=== PATIENT | female | born 2000 | race Caucasian/White ===

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

== ENCOUNTER 2020-08-23 20:50 | Emergency (ER) | payer MEDICAID, OTHER ==
--- NOTE | 2020-08-23 21:32 | CR ---
PROCEDURE INFORMATION: Exam: XR Right Ankle Exam date and time: 08/23/2020 9:05 PM Age: 20 years old Clinical indication: Injury or trauma; Other: Tripped over carpet and twisted ankle; Sprain or strain; Right; Injury date: 08/23/20; Additional info: Pain, TECHNIQUE: Imaging protocol: XR Right ankle. Views: 3 or more views. COMPARISON: No relevant prior studies available. FINDINGS: Bones/joints: There is no evidence of acute fracture. There is no evidence of joint malalignment or dislocation. Soft tissues: There are no soft tissue masses or fluid collections. IMPRESSION: 1. No evidence of acute fracture. 2. No evidence of acute dislocation.
[2020-08-23 22:00] VITALS: BP 132/82; PULSE 97
--- NOTE | 2020-08-23 22:16 | EDM.PDOC ---
ED HPI GENERAL MEDICAL PROBLEM - General Chief Complaint: Lower Extremity Injury/Pain Stated Complaint: INJURED RIGHT ANKLE Time Seen by Provider: 08/23/20 21:25 Source of Information: Reports: Patient History Limitations: Reports: No Limitations - History of Present Illness INITIAL COMMENTS - FREE TEXT/NARRATIVE: "turned ankle a work" Pain to rohgt outer ankle , stepped wrong going down ramp while at work. Right Ankle Pain Score (Numeric/FACES): 8 - Related Data Allergies Allergy/AdvReac Type Severity Reaction Status Date / Time coconut Allergy tongue Verified 08/23/20 21:55 swells trazodone Allergy Cannot Verified 08/23/20 21:55 Remember acetaminophen [From Midol] AdvReac Nausea Verified 08/23/20 21:55 pamabrom [From Midol] AdvReac Nausea Verified 08/23/20 21:55 "Drake" products Allergy Cannot Uncoded 07/26/19 23:11 Remember "Off" products Allergy Cannot Uncoded 07/26/19 23:11 Remember "Olay" products Allergy Cannot Uncoded 07/26/19 23:11 Remember Lysol Allergy Throat Uncoded 07/26/19 23:11 closes Home Meds: Home Meds Albuterol [Proventil Neb Soln] 1.25 mg NEB Q6H PRN 07/12/19 [History] FLUoxetine HCl [Fluoxetine HCl] 20 mg PO DAILY 07/12/19 [History] Multivitamin, Womens 1 tab PO DAILY 07/12/19 [History] hydrOXYzine pamoate [Hydroxyzine Pamoate] 50 mg PO TID PRN 07/12/19 [History] lamoTRIgine [Lamotrigine] 50 mg PO WITHBREAKFAST 07/12/19 [History] lamoTRIgine [Lamotrigine] 100 mg PO BEDTIME 08/23/20 [History] Past Medical History - Past Health History Medical/Surgical History: Denies Medical/Surgical History HEENT History: Reports: Impaired Vision Respiratory History: Reports: Asthma, Other (See Below) Other Respiratory History: "acute" asthma Gastrointestinal History: Reports: Chronic Constipation Genitourinary History: Reports: UTI, Recurrent 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 "knee messed up" Psychiatric History: Reports: ADHD, Anxiety, Depression, Mood Swings, PTSD, Other (See Below) Other Psychiatric History: "borderline personality disorder" Dermatologic History: Reports: Other (See Below) Other Dermatologic History: acne. multiple very superficial "cuts" to bilateral forearms - Past Surgical History HEENT Surgical History: Reports: Myringotomy w Tube(s) Social & Family History - Family History Family Medical History: No Pertinent Family History - Tobacco Use Tobacco Use Status *Q: Former Tobacco User Used Tobacco, but Quit: Yes Month/Year Tobacco Last Used: 2 yra ago Second Hand Smoke Exposure: No - Caffeine Use Caffeine Use: Reports: None Caffeine Use Comment: Pt reports drinking "a lot" and "more than I usually do" when asked about caffeine consumption tonight. - Recreational Drug Use Recreational Drug Use: No - Living Situation & Occupation Living situation: Reports: with Family Occupation: Student Review of Systems - Review of Systems Review Of Systems: Comprehensive ROS is negative, except as noted in HPI. ED EXAM, GENERAL - Physical Exam Exam: See Below Exam Limited By: No Limitations General Appearance: Alert, Mild Distress Ears: Normal External Exam, Hearing Grossly Normal Nose: Normal Inspection Throat/Mouth: Normal Inspection Head: Atraumatic, Normocephalic Neck: Normal Inspection Respiratory/Chest: No Respiratory Distress, Normal Breath Sounds Cardiovascular: Normal Peripheral Pulses, Regular Rate, Rhythm Extremities: Joint Swelling (mild lateral right ankle), Limited Range of Motion. No: Normal Range of Motion Neurological: Alert, Oriented Psychiatric: Normal Affect, Normal Mood Course - Vital Signs Last Recorded V/S: Last Vital Signs Temp 98.7 F 08/23/20 21:15 Pulse 97 08/23/20 21:15 Resp 18 08/23/20 21:15 BP 132/82 08/23/20 21:15 Pulse Ox 100 08/23/20 21:15 Departure - Departure Time of Disposition: 22:13 Disposition: Home, Self-Care 01 Condition: Good Clinical Impression: Right ankle sprain - Discharge Information *PRESCRIPTION DRUG MONITORING PROGRAM REVIEWED*: No *COPY OF PRESCRIPTION DRUG MONITORING REPORT IN PATIENT BENITO: No Instructions: Ankle Sprain, [id number] Referrals: Serena Gilman, ELECTRICAL PROJECT MANAGER [Primary Care Provider] - Forms: ED Department Discharge Additional Instructions: ibuprofen 600mg every 6 hours as needed for discomfort, take with food ice pack to ankle elevate silvano wrap crutches, weight bearing as tolerated clinic follow up on Friday to recheck Sepsis Event Note (ED) - Evaluation Sepsis Screening Result: No Definite Risk - Focused Exam Vital Signs: Vital Signs Temp Pulse Resp BP Pulse Ox 08/23/20 21:15 98.7 F 97 18 132/82 100
== END 2020-08-23 22:28 | disposition home or self-care (01) ==
LOC: DL.ED 20:50
DX: S93.401A Sprain of unspecified ligament of right ankle, initial encounter (principal); J45.909 Unspecified asthma, uncomplicated; Z91.018 Allergy to other foods; Z88.5 Allergy status to narcotic agent; Z88.6 Allergy status to analgesic agent; Z87.891 Personal history of nicotine dependence; Z91.048 Other nonmedicinal substance allergy status; Z79.899 Other long term (current) drug therapy; X50.9XXA Other and unspecified overexertion or strenuous movements or postures, initial encounter; Y99.0 Civilian activity done for income or pay
CPT/HCPCS: 73610-RT; 99282; 99283

== ENCOUNTER 2020-12-09 15:44 | Emergency (ER) | payer SELFPAY ==
[2020-12-09] MEDS ORDERED: Omeprazole 20 MG Cap.CR PO ONE (15:45)
[2020-12-09 15:54] VITALS: BP 119/64; PULSE 80
[2020-12-09 16:46] LABS: ANION GAP 13.5 mEq/L (7-13); CHLORIDE,CL 104 mmol/L (98-107); SODIUM,NA 141 mmol/L (136-145)
[2020-12-09 16:47] LABS: ACETAMINOPHEN 0 ug/mL (10-30 (Therapeutic))
[2020-12-09 16:53] LABS: AMPHETAMINES,URINE NEGATIVE (NEGATIVE); BARBITURATES,URINE NEGATIVE (NEGATIVE); BENZODIAZEPINE,URINE NEGATIVE (NEGATIVE); MDMA (ECSTASY), URINE NEGATIVE (NEGATIVE); METHADONE,URINE NEGATIVE (NEGATIVE); METHAMPHETAMINES,URINE NEGATIVE (NEGATIVE); OPIATES,URINE NEGATIVE (NEGATIVE); OXYCODONE,URINE NEGATIVE (NEGATIVE); PHENCYCLIDINE,URINE NEGATIVE (NEGATIVE); TCA,URINE NEGATIVE (NEGATIVE)
[2020-12-09] MEDS ORDERED: GI Cocktail Oral Solution 30 ML PO ONE (16:54)
--- NOTE | 2020-12-09 17:21 | EDM.PDOC ---
ED HPI GENERAL MEDICAL PROBLEM - General Chief Complaint: Abdominal Pain Stated Complaint: AMBULANCE Time Seen by Provider: 12/09/20 16:10 Source of Information: Reports: Patient History Limitations: Reports: No Limitations - History of Present Illness INITIAL COMMENTS - FREE TEXT/NARRATIVE: This 20 yo female patient reports to the ED due to epigastric pain that radiates to her left upper abdomen. The patient also reports her pain goes into her chest. The patient [place] started to experience symptoms after eating pizza and drinking 1/2 of a soda. The patient reports she does have a history of acid reflux as well as a strong family history of the same. The patient reports she has no abdominal surgical history. Onset: Today Duration: Hour(s):, Constant Location: Reports: Chest, Abdomen Quality: Reports: Ache, Sharp, Stabbing Severity: Severe Improves with: Reports: None Worsens with: Reports: None Context: Reports: Other Associated Symptoms: Reports: No Other Symptoms Left Chest Pain Score (Numeric/FACES): 9 - Related Data Allergies Allergy/AdvReac Type Severity Reaction Status Date / Time coconut Allergy tongue Verified 12/09/20 15:54 swells trazodone Allergy Cannot Verified 12/09/20 15:54 Remember acetaminophen [From Midol] AdvReac Nausea Verified 12/09/20 15:54 pamabrom [From Midol] AdvReac Nausea Verified 12/09/20 15:54 "Drake" products Allergy Cannot Uncoded 07/26/19 23:11 Remember "Off" products Allergy Cannot Uncoded 07/26/19 23:11 Remember "Olay" products Allergy Cannot Uncoded 07/26/19 23:11 Remember Lysol Allergy Throat Uncoded 07/26/19 23:11 closes Home Meds: Home Meds Multivitamin, Womens 1 tab PO DAILY 07/12/19 [History] hydrOXYzine pamoate [Hydroxyzine Pamoate] 50 mg PO BEDTIME PRN 07/12/19 [History] Lurasidone [Latuda] 40 mg PO DAILY 12/09/20 [History] Prazosin HCl [Prazosin] 1 mg PO BEDTIME 12/09/20 [History] Past Medical History - Past Health History Medical/Surgical History: Denies Medical/Surgical History HEENT History: Reports: Impaired Vision Respiratory History: Reports: Asthma, Other (See Below) Other Respiratory History: "acute" asthma Gastrointestinal History: Reports: Chronic Constipation Genitourinary History: Reports: UTI, Recurrent DOCTOR OF NURSE ANESTHESIA History: Reports: Other (See Below) Other DOCTOR OF NURSE ANESTHESIA History: Has period at this time Musculoskeletal History: Reports: Fracture Other Musculoskeletal History: finger, ankle. "knee messed up" Psychiatric History: Reports: ADHD, Anxiety, Depression, Mood Swings, PTSD, Other (See Below) Other Psychiatric History: "borderline personality disorder" Dermatologic History: Reports: Other (See Below) Other Dermatologic History: acne. multiple very superficial "cuts" to bilateral forearms - Past Surgical History HEENT Surgical History: Reports: Myringotomy w Tube(s) Social & Family History - Family History Family Medical History: No Pertinent Family History - Tobacco Use Tobacco Use Status *Q: Current Every Day Tobacco User Years of Tobacco use: 1 Packs/Tins Daily: 1 - Caffeine Use Caffeine Use: Reports: Soda Caffeine Use Comment: Pt reports drinking "a lot" and "more than I usually do" when asked about caffeine consumption tonight. - Recreational Drug Use Recreational Drug Use: Yes Recreational Drug Type: Reports: Marijuana/Hashish - Living Situation & Occupation Living situation: Reports: with Family Occupation: Student ED ROS GENERAL - Review of Systems Review Of Systems: Comprehensive ROS is negative, except as noted in HPI. ED EXAM, GI/ABD - Physical Exam Exam: See Below Exam Limited By: No Limitations General Appearance: Alert, WD/WN, Anxious, Moderate Distress Eyes: Bilateral: Normal Appearance, EOMI Ears: Normal External Exam, Normal Canal, Hearing Grossly Normal, Normal TMs Nose: Normal Inspection, Normal Mucosa, No Blood Throat/Mouth: Normal Inspection, Normal Lips, Normal Teeth, Normal Gums, Normal Oropharynx, Normal Voice, No Airway Compromise Head: Atraumatic, Normocephalic Neck: Normal Inspection, Supple, Non-Tender, Full Range of Motion Respiratory/Chest: No Respiratory Distress, Lungs Clear, Normal Breath Sounds, No Accessory Muscle Use, Chest Non-Tender Cardiovascular: Normal Peripheral Pulses, Regular Rate, Rhythm, No Edema, No Gallop, No JVD, No Murmur, No Rub GI/Abdominal Exam: Normal Bowel Sounds, No Organomegaly, No Distention, No Abnormal Bruit, No Mass, Pelvis Stable, Tender (epigastric tenderness to palpation) Rectal (Female) Exam: Deferred Back Exam: Normal Inspection, Full Range of Motion, NT Extremities: Normal Inspection, Normal Range of Motion, Non-Tender, Normal Capillary Refill, No Pedal Edema Psychiatric: Anxious Skin Exam: Warm, Dry, Intact, Normal Color, No Rash Lymphatic: No Adenopathy #1 Interpretation EKG Date: 12/09/20 Time: 16:35 Rhythm: NSR Rate (Beats/Min): 82 [place]: Normal P-Wave: Present QRS: Normal ST-T: Normal QT: Normal Comparison: NA - No Prior EKG Course - Vital Signs Last Recorded V/S: Last Vital Signs Temp 98.2 F 12/09/20 15:52 Pulse 80 12/09/20 15:52 Resp 14 12/09/20 15:52 BP 119/64 12/09/20 15:52 Pulse Ox 100 12/09/20 15:52 - Orders/Labs/Meds Orders: Active Orders 24 hr Category Date Time Status EKG 12 Lead [EKG Documentation Completion] [RC] DAILY Care 12/09/20 16:22 Active Labs: Laboratory Tests 12/09/20 12/09/20 12/09/20 Range/Units 16:12 16:12 16:40 WBC 9.0 (5.0-10.0) 10^3/uL RBC 5.27 (4.2-5.4) 10^6/uL Hgb 12.9 D (12.0-16.0) g/dL Hct 40.4 (37.0-47.0) % MCV 76.7 L (80-100) fL MCH 24.5 L (27.0-34.0) pg MCHC 31.9 L (33.0-35.0) g/dL Plt Count 322 (150-450) 10^3/uL Neut % (Auto) 64.1 (42.2-75.2) % Lymph % (Auto) 25.9 (20.5-50.1) % [place] % (Auto) 6.9 (2-8) % Eos % (Auto) 2.5 (1.0-3.0) % Baso % (Auto) 0.6 (0.0-1.0) % Sodium 141 (136-145) mmol/L Potassium 4.5 (3.5-5.1) mmol/L Chloride 104 (98-107) mmol/L Carbon Dioxide 28 (21-32) mmol/L Anion Gap 13.5 H (7-13) mEq/L BUN 12 (7-18) mg/dL Creatinine 0.96 (0.55-1.02) mg/dL Est Cr Clr Drug Dosing 84.11 mL/min Estimated GFR (MDRD) > 60 BUN/Creatinine Ratio 12.5 (No establ ref range) Glucose 78 (70-99) mg/dL Calcium 9.5 (8.5-10.1) mg/dL Magnesium 2.0 (1.8-2.4) mg/dL Total Bilirubin 0.4 (0.2-1.0) mg/dL AST 12 L (15-37) U/L ALT 26 (14-59) U/L Alkaline Phosphatase 142 H (46-116) U/L Total Protein 7.5 (6.4-8.2) g/dL Albumin 3.8 (3.4-5.0) g/dL Globulin 3.7 Albumin/Globulin Ratio 1.0 Amylase 95 (25-115) U/L Lipase 104 (73-393) U/L Urine Color Yellow (YELLOW) Urine Appearance Slightly cloudy (CLEAR) Urine pH 6.0 (5.0-9.0) Ur Specific [place] >= 1.030 (1.005-1.030) Urine Protein Negative (NEGATIVE) Urine Glucose (UA) Negative (NEGATIVE) Urine Ketones Negative (NEGATIVE) Urine Occult Blood Negative (NEGATIVE) Urine Nitrite Negative (NEGATIVE) Urine Bilirubin Negative (NEGATIVE) Urine Urobilinogen 0.2 (0.2-1.0) mg/dL Ur Leukocyte Esterase Negative (NEGATIVE) Urine HCG, Qual Urine Opiates Screen (NEGATIVE) Ur Oxycodone Screen (NEGATIVE) Urine Methadone Screen (NEGATIVE) Acetaminophen 0 L (10-30 (Therapeutic)) ug/mL Ur Barbiturates Screen (NEGATIVE) U Tricyclic Antidepress (NEGATIVE) Ur Phencyclidine Scrn (NEGATIVE) Ur Amphetamine Screen (NEGATIVE) U Methamphetamines Scrn (NEGATIVE) Urine MDMA Screen (NEGATIVE) U Benzodiazepines Scrn (NEGATIVE) Urine Cocaine Screen (NEGATIVE) U Marijuana (THC) Screen (NEGATIVE) Ethyl Alcohol < 3 (0) mg/dL 12/09/20 12/09/20 Range/Units 16:40 16:40 WBC (5.0-10.0) 10^3/uL RBC (4.2-5.4) 10^6/uL Hgb (12.0-16.0) g/dL Hct (37.0-47.0) % MCV (80-100) fL MCH (27.0-34.0) pg MCHC (33.0-35.0) g/dL Plt Count (150-450) 10^3/uL Neut % (Auto) (42.2-75.2) % Lymph % (Auto) (20.5-50.1) % [place] % (Auto) (2-8) % Eos % (Auto) (1.0-3.0) % Baso % (Auto) (0.0-1.0) % Sodium (136-145) mmol/L Potassium (3.5-5.1) mmol/L Chloride (98-107) mmol/L Carbon Dioxide (21-32) mmol/L Anion Gap (7-13) mEq/L BUN (7-18) mg/dL Creatinine (0.55-1.02) mg/dL Est Cr Clr Drug Dosing mL/min Estimated GFR (MDRD) BUN/Creatinine Ratio (No establ ref range) Glucose (70-99) mg/dL Calcium (8.5-10.1) mg/dL Magnesium (1.8-2.4) mg/dL Total Bilirubin (0.2-1.0) mg/dL AST (15-37) U/L ALT (14-59) U/L Alkaline Phosphatase (46-116) U/L Total Protein (6.4-8.2) g/dL Albumin (3.4-5.0) g/dL Globulin Albumin/Globulin Ratio Amylase (25-115) U/L Lipase (73-393) U/L Urine Color (YELLOW) Urine Appearance (CLEAR) Urine pH (5.0-9.0) Ur Specific [place] (1.005-1.030) Urine Protein (NEGATIVE) Urine Glucose (UA) (NEGATIVE) Urine Ketones (NEGATIVE) Urine Occult Blood (NEGATIVE) Urine Nitrite (NEGATIVE) Urine Bilirubin (NEGATIVE) Urine Urobilinogen (0.2-1.0) mg/dL Ur Leukocyte Esterase (NEGATIVE) Urine HCG, Qual Negative Urine Opiates Screen Negative (NEGATIVE) Ur Oxycodone Screen Negative (NEGATIVE) Urine Methadone Screen Negative (NEGATIVE) Acetaminophen (10-30 (Therapeutic)) ug/mL Ur Barbiturates Screen Negative (NEGATIVE) U Tricyclic Antidepress Negative (NEGATIVE) Ur Phencyclidine Scrn Negative (NEGATIVE) Ur Amphetamine Screen Negative (NEGATIVE) U Methamphetamines Scrn Negative (NEGATIVE) Urine MDMA Screen Negative (NEGATIVE) U Benzodiazepines Scrn Negative (NEGATIVE) Urine Cocaine Screen Negative (NEGATIVE) U Marijuana (THC) Screen Positive H (NEGATIVE) Ethyl Alcohol (0) mg/dL Meds: Medications Discontinued Medications Generic Name Dose Route Start Last Admin Trade Name Freq PRN Reason Stop Dose Admin Al Hydroxide/Mg Hydroxide 30 ml 12/09/20 16:54 12/09/20 17:07 Gi Cocktail Oral Solution 30 Ml PO 12/09/20 16:55 30 ml ONETIME ONE Administration - Re-Assessments/Exams Free Text/Narrative Re-Assessment/Exam: 12/09/20 17:49 The patient reports symptom improvement after the GI Cocktail. Departure - Departure Time of Disposition: 17:49 Disposition: Home, Self-Care 01 Condition: Fair Clinical Impression: GERD (gastroesophageal reflux disease) Qualifiers: Esophagitis presence: with esophagitis Esophagitis bleeding: without hemorrhage Qualified Code(s): K21.00 - Gastro-esophageal reflux disease with esophagitis, without bleeding - Discharge Information *PRESCRIPTION DRUG MONITORING PROGRAM REVIEWED*: Not Applicable *COPY OF PRESCRIPTION DRUG MONITORING REPORT IN PATIENT BENITO: Not Applicable Instructions: Food Choices for Gastroesophageal Reflux Disease, Adult, Gastroesophageal Reflux Disease, Adult, [id number] Forms: ED Department Discharge Care Plan Goals: The patient was advised of the examination and lab results during the visit. The patient was given a GI Cocktail while in the ED with significant symptom reduction. The patient was discharged with a script for Omeprazole (20 mg) #20 to take 1 by mouth 30 minutes before her meal daily for 1 month. If the patient has any additional symptoms or concerns, the patient should either follow-up with her primary care facility or return to the emergency department. Sepsis Event Note (ED) - Evaluation Sepsis Screening Result: No Definite Risk - Focused Exam Vital Signs: Vital Signs Temp Pulse Resp BP Pulse Ox 12/09/20 15:52 98.2 F 80 14 119/64 100 - My Orders Last 24 Hours: My Active Orders 12/09/20 16:22 EKG 12 Lead [EKG Documentation Completion] [RC] DAILY - Assessment/Plan Last 24 Hours: My Active Orders 12/09/20 16:22 EKG 12 Lead [EKG Documentation Completion] [RC] DAILY
[2020-12-09] MEDS ORDERED: Omeprazole 20 MG Cap.CR ONE (17:53)
== END 2020-12-09 18:11 | disposition home or self-care (01) ==
LOC: DL.ED 15:44
DX: K21.00 Gastro-esophageal reflux disease with esophagitis, without bleeding (principal); Z72.0 Tobacco use; Z91.018 Allergy to other foods; Z88.5 Allergy status to narcotic agent; Z88.6 Allergy status to analgesic agent; Z91.048 Other nonmedicinal substance allergy status
CPT/HCPCS: 36415; 80053; 80143; 80305-QW; 80307; 81003; 81025; 82150; 83690; 83735; 85025; 93005; 93010; 99283; 99284-25; A9270-GY

== ENCOUNTER 2021-04-24 17:05 | Emergency (ER) | payer OTHER ==
[2021-04-24 17:12] VITALS: BP 133/84; PULSE 97
[2021-04-24 17:58] LABS: ANION GAP 16.6 mEq/L (7-13); CHLORIDE,CL 103 mmol/L (98-107); SODIUM,NA 143 mmol/L (136-145)
[2021-04-24 18:15] LABS: AMPHETAMINES,URINE NEGATIVE (NEGATIVE); BARBITURATES,URINE NEGATIVE (NEGATIVE); BENZODIAZEPINE,URINE NEGATIVE (NEGATIVE); MDMA (ECSTASY), URINE NEGATIVE (NEGATIVE); METHADONE,URINE NEGATIVE (NEGATIVE); METHAMPHETAMINES,URINE NEGATIVE (NEGATIVE); OPIATES,URINE NEGATIVE (NEGATIVE); OXYCODONE,URINE NEGATIVE (NEGATIVE); PHENCYCLIDINE,URINE NEGATIVE (NEGATIVE); TCA,URINE NEGATIVE (NEGATIVE)
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
--- NOTE | 2021-04-24 18:37 | CR ---
PROCEDURE INFORMATION: Exam: XR Right Hand Exam date and time: 04/24/2021 6:16 PM Age: 21 years old Clinical indication: Other: B/l hand pain at ulnar sides TECHNIQUE: Imaging protocol: XR Right hand. Views: 3 or more views. COMPARISON: No relevant prior studies available. FINDINGS: Bones/joints: Normal. Soft tissues: Normal. IMPRESSION: No acute findings. PROCEDURE INFORMATION: Exam: XR Left Hand Exam date and time: 04/24/2021 6:16 PM Age: 21 years old Clinical indication: Other: B/l hand pain at ulnar sides TECHNIQUE: Imaging protocol: XR Left hand. Views: 3 or more views. COMPARISON: No relevant prior studies available. FINDINGS: Bones/joints: Normal. Soft tissues: Normal. IMPRESSION: No acute findings.
== END 2021-04-24 18:57 ==
LOC: DL.ED 17:05
DX: S60.222A Contusion of left hand, initial encounter (principal); S60.221A Contusion of right hand, initial encounter; Z91.018 Allergy to other foods; Z88.5 Allergy status to narcotic agent; Z88.8 Allergy status to other drugs, medicaments and biological substances; Z91.048 Other nonmedicinal substance allergy status; Z20.822 Contact with and (suspected) exposure to COVID-19; Y04.0XXA Assault by unarmed brawl or fight, initial encounter; X78.9XXA Intentional self-harm by unspecified sharp object, initial encounter
CPT/HCPCS: 36415; 73130-50; 80053; 80143; 80179; 80305-QW; 80307; 81001; 83735; 84703; 85025; 99285-25; U0002

== ENCOUNTER 2021-05-05 12:29 | Emergency (ER) | payer OTHER ==
[2021-05-05 13:22] LABS: AMPHETAMINES,URINE NEGATIVE (NEGATIVE); BARBITURATES,URINE NEGATIVE (NEGATIVE); BENZODIAZEPINE,URINE NEGATIVE (NEGATIVE); MDMA (ECSTASY), URINE NEGATIVE (NEGATIVE); METHADONE,URINE NEGATIVE (NEGATIVE); METHAMPHETAMINES,URINE NEGATIVE (NEGATIVE); OPIATES,URINE NEGATIVE (NEGATIVE); OXYCODONE,URINE NEGATIVE (NEGATIVE); PHENCYCLIDINE,URINE NEGATIVE (NEGATIVE); TCA,URINE NEGATIVE (NEGATIVE)
[2021-05-05 13:39] LABS: ANION GAP 17.2 mEq/L (7-13); CHLORIDE,CL 101 mmol/L (98-107); SODIUM,NA 137 mmol/L (136-145)
[2021-05-05] MEDS ORDERED: GI Cocktail Oral Solution 30 ML PO ONE (13:39)
[2021-05-05] MEDS ORDERED: Omeprazole 20 MG Cap.CR PO ONE (13:59)
--- NOTE | 2021-05-05 14:05 | EDM.PDOC ---
Scribed by Lizzy Kuo 05/05/21 [id number] for Franco Cruz PA ED HPI GENERAL MEDICAL PROBLEM - General Chief Complaint: Abdominal Pain Stated Complaint: VOMITING EVERYTIME SHE EATS Time Seen by Provider: 05/05/21 12:45 Source of Information: Reports: Patient, RN, RN Notes Reviewed History Limitations: Reports: No Limitations - History of Present Illness INITIAL COMMENTS - FREE TEXT/NARRATIVE: Patient is a 21-year-old female who reports to ED with a one month history of intermittent mid upper abdominal pain. The patient reports increased pain after eating. The patient has not attempted to be seen by primary care. Patient has taken Ibuprofen and Tums once with no symptoms relief. Onset: Gradual Duration: Getting Worse Location: Reports: Abdomen Quality: Reports: Ache Severity: Severe Improves with: Reports: None Worsens with: Reports: None Associated Symptoms: Reports: No Other Symptoms Abdomen Pain Score (Numeric/FACES): 8 - Related Data Allergies Allergy/AdvReac Type Severity Reaction Status Date / Time coconut Allergy tongue Verified 05/05/21 12:40 swells trazodone Allergy Cannot Verified 05/05/21 12:40 Remember acetaminophen [From Midol] AdvReac Nausea Verified 05/05/21 12:40 pamabrom [From Midol] AdvReac Nausea Verified 05/05/21 12:40 "Drake" products Allergy Cannot Uncoded 05/05/21 12:40 Remember "Off" products Allergy Cannot Uncoded 05/05/21 12:40 Remember "Olay" products Allergy Cannot Uncoded 05/05/21 12:40 Remember Lysol Allergy Throat Uncoded 05/05/21 12:40 closes Home Meds: Home Meds Cariprazine HCl [Vraylar] 3 mg PO DAILY 04/24/21 [History] Past Medical History - Past Health History Medical/Surgical History: Denies Medical/Surgical History HEENT History: Reports: Impaired Vision Respiratory History: Reports: Asthma, Other (See Below) Other Respiratory History: "acute" asthma Gastrointestinal History: Reports: Chronic Constipation Genitourinary History: Reports: UTI, Recurrent 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 "knee messed up" Psychiatric History: Reports: ADHD, Anxiety, Depression, Mood Swings, PTSD, Other (See Below) Other Psychiatric History: "borderline personality disorder" Dermatologic History: Reports: Other (See Below) Other Dermatologic History: acne. multiple very superficial "cuts" to bilateral forearms - Past Surgical History HEENT Surgical History: Reports: Myringotomy w Tube(s) Social & Family History - Family History Family Medical History: No Pertinent Family History - Caffeine Use Caffeine Use: Reports: Soda Caffeine Use Comment: Pt reports drinking "a lot" and "more than I usually do" when asked about caffeine consumption tonight. - Living Situation & Occupation Living situation: Reports: with Family Occupation: Student ED ROS GENERAL - Review of Systems Review Of Systems: Comprehensive ROS is negative, except as noted in HPI. ED EXAM, GI/ABD - Physical Exam Exam: See Below Exam Limited By: No Limitations General Appearance: Alert, WD/WN, No Apparent Distress Eyes: Bilateral: Normal Appearance Ears: Normal External Exam, Normal Canal, Hearing Grossly Normal, Normal TMs Nose: Normal Inspection, Normal Mucosa, No Blood Throat/Mouth: Normal Inspection, Normal Lips, Normal Teeth, Normal Gums, Normal Oropharynx, Normal Voice, No Airway Compromise Head: Atraumatic, Normocephalic Neck: Normal Inspection, Supple, Non-Tender, Full Range of Motion Respiratory/Chest: No Respiratory Distress, Lungs Clear, Normal Breath Sounds, No Accessory Muscle Use, Chest Non-Tender Cardiovascular: Normal Peripheral Pulses, Regular Rate, Rhythm, No Edema, No Gallop, No JVD, No Murmur, No Rub GI/Abdominal Exam: Other (mid epigastric pain with palpation. Normal bowel sounds) (Female) Exam: Deferred Rectal (Female) Exam: Deferred Back Exam: Normal Inspection, Full Range of Motion, NT Extremities: Normal Inspection, Normal Range of Motion, Non-Tender, Normal Capillary Refill, No Pedal Edema Neurological: Alert, Oriented, CN II-XII Intact, Normal Cognition, Normal Gait, Normal Reflexes, No Motor/Sensory Deficits Psychiatric: Normal Affect, Normal Mood Skin Exam: Warm, Dry, Intact, Normal Color, No Rash Lymphatic: No Adenopathy Course - Vital Signs Last Recorded V/S: Last Vital Signs Temp 98.4 F 05/05/21 13:45 Pulse 87 05/05/21 13:45 Resp 14 05/05/21 13:45 BP 121/75 05/05/21 13:45 Pulse Ox 97 05/05/21 13:45 - Orders/Labs/Meds Labs: Laboratory Tests 05/05/21 05/05/21 05/05/21 Range/Units 12:43 12:43 12:43 WBC (5.0-10.0) 10^3/uL RBC (4.2-5.4) 10^6/uL Hgb (12.0-16.0) g/dL Hct (37.0-47.0) % MCV (80-100) fL MCH (27.0-34.0) pg MCHC (33.0-35.0) g/dL Plt Count (150-450) 10^3/uL Neut % (Auto) (42.2-75.2) % Lymph % (Auto) (20.5-50.1) % Wheeler % (Auto) (2-8) % Eos % (Auto) (1.0-3.0) % Baso % (Auto) (0.0-1.0) % Sodium (136-145) mmol/L Potassium (3.5-5.1) mmol/L Chloride (98-107) mmol/L Carbon Dioxide (21-32) mmol/L Anion Gap (7-13) mEq/L BUN (7-18) mg/dL Creatinine (0.55-1.02) mg/dL Est Cr Clr Drug Dosing Estimated GFR (MDRD) BUN/Creatinine Ratio (No establ ref range) Glucose (70-99) mg/dL Lactic Acid (0.4-2.0) mmol/L Calcium (8.5-10.1) mg/dL Total Bilirubin (0.2-1.0) mg/dL AST (15-37) U/L ALT (14-59) U/L Alkaline Phosphatase (46-116) U/L Total Protein (6.4-8.2) g/dL Albumin (3.4-5.0) g/dL Globulin Albumin/Globulin Ratio Amylase (25-115) U/L Lipase (73-393) U/L Urine Color Yellow (YELLOW) Urine Appearance Clear (CLEAR) Urine pH 6.0 (5.0-9.0) Ur Specific Milo 1.025 (1.005-1.030) Urine Protein Negative (NEGATIVE) Urine Glucose (UA) Negative (NEGATIVE) Urine Ketones Negative (NEGATIVE) Urine Occult Blood Negative (NEGATIVE) Urine Nitrite Negative (NEGATIVE) Urine Bilirubin Negative (NEGATIVE) Urine Urobilinogen 0.2 (0.2-1.0) mg/dL Ur Leukocyte Esterase Negative (NEGATIVE) Urine HCG, Qual Negative Urine Opiates Screen Negative (NEGATIVE) Ur Oxycodone Screen Negative (NEGATIVE) Urine Methadone Screen Negative (NEGATIVE) Ur Barbiturates Screen Negative (NEGATIVE) U Tricyclic Antidepress Negative (NEGATIVE) Ur Phencyclidine Scrn Negative (NEGATIVE) Ur Amphetamine Screen Negative (NEGATIVE) U Methamphetamines Scrn Negative (NEGATIVE) Urine MDMA Screen Negative (NEGATIVE) U Benzodiazepines Scrn Negative (NEGATIVE) Urine Cocaine Screen Negative (NEGATIVE) U Marijuana (THC) Screen Negative (NEGATIVE) 05/05/21 05/05/21 05/05/21 Range/Units 13:15 13:15 13:15 WBC 7.7 (5.0-10.0) 10^3/uL RBC 5.18 (4.2-5.4) 10^6/uL Hgb 13.1 (12.0-16.0) g/dL Hct 40.8 (37.0-47.0) % MCV 78.8 L (80-100) fL MCH 25.3 L (27.0-34.0) pg MCHC 32.1 L (33.0-35.0) g/dL Plt Count 307 (150-450) 10^3/uL Neut % (Auto) 58.9 (42.2-75.2) % Lymph % (Auto) 29.9 (20.5-50.1) % Wheeler % (Auto) 7.2 (2-8) % Eos % (Auto) 3.5 H (1.0-3.0) % Baso % (Auto) 0.5 (0.0-1.0) % Sodium 137 (136-145) mmol/L Potassium 4.2 (3.5-5.1) mmol/L Chloride 101 (98-107) mmol/L Carbon Dioxide 23 (21-32) mmol/L Anion Gap 17.2 H (7-13) mEq/L BUN 9 (7-18) mg/dL Creatinine 0.78 (0.55-1.02) mg/dL Est Cr Clr Drug Dosing TNP Estimated GFR (MDRD) > 60 BUN/Creatinine Ratio 11.5 (No establ ref range) Glucose 87 (70-99) mg/dL Lactic Acid 1.1 (0.4-2.0) mmol/L Calcium 9.2 (8.5-10.1) mg/dL Total Bilirubin 0.2 (0.2-1.0) mg/dL AST 14 L (15-37) U/L ALT 19 (14-59) U/L Alkaline Phosphatase 100 (46-116) U/L Total Protein 7.7 (6.4-8.2) g/dL Albumin 4.0 (3.4-5.0) g/dL Globulin 3.7 Albumin/Globulin Ratio 1.1 Amylase 74 (25-115) U/L Lipase 89 (73-393) U/L Urine Color (YELLOW) Urine Appearance (CLEAR) Urine pH (5.0-9.0) Ur Specific Milo (1.005-1.030) Urine Protein (NEGATIVE) Urine Glucose (UA) (NEGATIVE) Urine Ketones (NEGATIVE) Urine Occult Blood (NEGATIVE) Urine Nitrite (NEGATIVE) Urine Bilirubin (NEGATIVE) Urine Urobilinogen (0.2-1.0) mg/dL Ur Leukocyte Esterase (NEGATIVE) Urine HCG, Qual Urine Opiates Screen (NEGATIVE) Ur Oxycodone Screen (NEGATIVE) Urine Methadone Screen (NEGATIVE) Ur Barbiturates Screen (NEGATIVE) U Tricyclic Antidepress (NEGATIVE) Ur Phencyclidine Scrn (NEGATIVE) Ur Amphetamine Screen (NEGATIVE) U Methamphetamines Scrn (NEGATIVE) Urine MDMA Screen (NEGATIVE) U Benzodiazepines Scrn (NEGATIVE) Urine Cocaine Screen (NEGATIVE) U Marijuana (THC) Screen (NEGATIVE) Meds: Medications Discontinued Medications Generic Name Dose Route Start Last Admin Trade Name Freq PRN Reason Stop Dose Admin Al Hydroxide/Mg Hydroxide 30 ml 05/05/21 13:39 05/05/21 13:43 Gi Cocktail Oral Solution 30 Ml PO 05/05/21 13:40 30 ml ONETIME ONE Administration Omeprazole 20 mg 05/05/21 13:59 Omeprazole 20 Mg Cap.Cr PO 05/05/21 14:00 ONETIME ONE Departure - Departure Time of Disposition: 14:02 Disposition: Home, Self-Care 01 Condition: Fair Clinical Impression: PUD (peptic ulcer disease) - Discharge Information *PRESCRIPTION DRUG MONITORING PROGRAM REVIEWED*: Not Applicable *COPY OF PRESCRIPTION DRUG MONITORING REPORT IN PATIENT BENITO: Not Applicable Instructions: Peptic Ulcer, [id number] Forms: ED Department Discharge Care Plan Goals: The patient was advised of the examination and lab results during the visit. The patient was given an oral GI Cocktail with some symptom relief. The patient was also given an oral dose of Omeprazole while in the ED. The patient was discharged with a script for Omeprazole (20 mg) #30 to take 1 by mouth 30 minutes prior to eating daily. The patient was encouraged to follow-up with a primary care provider for continued evaluation and management. If the patient has any additional symptoms or concerns, the patient should either return to the emergency department or visit her primary care facility. Sepsis Event Note (ED) - Evaluation Sepsis Screening Result: No Definite Risk - Focused Exam Vital Signs: Vital Signs Temp Pulse Resp BP Pulse Ox 05/05/21 13:45 98.4 F 87 14 121/75 97 05/05/21 12:41 97.3 F 80 16 127/76 97 I have read and agree with the documentation that has been completed regarding this visit. By signing this record, I attest that the documentation was completed in my physical presence and is an accurate record of the encounter.
[2021-05-05 14:15] VITALS: BP 121/75; PULSE 87
== END 2021-05-05 14:14 | disposition home or self-care (01) ==
LOC: DL.ED 12:29
DX: K27.9 Peptic ulcer, site unspecified, unspecified as acute or chronic, without hemorrhage or perforation (principal); Z91.018 Allergy to other foods; Z88.5 Allergy status to narcotic agent; Z91.048 Other nonmedicinal substance allergy status
CPT/HCPCS: 36415; 80053; 80305; 81003; 81025; 82150; 83605; 83690; 85025; 99284; A9270

== ENCOUNTER 2021-07-12 20:24 | Emergency (ER) | payer BC, OTHER ==
[2021-07-12 20:57] VITALS: BP 130/84; PULSE 75
[2021-07-12] MEDS ORDERED: Ibuprofen 400 MG Tab PO ONE (21:41)
== END 2021-07-12 21:56 | disposition home or self-care (01) ==
LOC: DL.ED 20:24
DX: S83.421A Sprain of lateral collateral ligament of right knee, initial encounter (principal); Z91.018 Allergy to other foods; Z88.5 Allergy status to narcotic agent; Z88.8 Allergy status to other drugs, medicaments and biological substances; Z79.899 Other long term (current) drug therapy; Z72.0 Tobacco use
CPT/HCPCS: 73562; 99283; A9270; 99282

== ENCOUNTER 2021-11-17 00:13 | Emergency (ER) | payer BC ==
[2021-11-17 01:54] LABS: ANION GAP 14.1 mEq/L (7-13)
[2021-11-17 03:22] LABS: AMPHETAMINES,URINE NEGATIVE (NEGATIVE); BARBITURATES,URINE NEGATIVE (NEGATIVE); BENZODIAZEPINE,URINE NEGATIVE (NEGATIVE); MDMA (ECSTASY), URINE NEGATIVE (NEGATIVE); METHADONE,URINE NEGATIVE (NEGATIVE); METHAMPHETAMINES,URINE NEGATIVE (NEGATIVE); OPIATES,URINE NEGATIVE (NEGATIVE); OXYCODONE,URINE NEGATIVE (NEGATIVE); PHENCYCLIDINE,URINE NEGATIVE (NEGATIVE); TCA,URINE NEGATIVE (NEGATIVE)
[2021-11-17 04:08] VITALS: BP 113/62; PULSE 83
== END 2021-11-17 03:56 | disposition home or self-care (01) ==
LOC: DL.ED 00:13
DX: E86.0 Dehydration (principal); N30.00 Acute cystitis without hematuria; F17.210 Nicotine dependence, cigarettes, uncomplicated; K21.9 Gastro-esophageal reflux disease without esophagitis; F41.9 Anxiety disorder, unspecified; F32.A Depression, unspecified; Z79.899 Other long term (current) drug therapy; Z91.018 Allergy to other foods; Z88.8 Allergy status to other drugs, medicaments and biological substances
CPT/HCPCS: 36415; 71045; 80053; 80305-QW; 81001; 81025; 83690; 83735; 85025; 87086; 93005; 99285-25

== ENCOUNTER 2021-11-29 19:00 | Emergency (ER) | payer BC | END 2021-11-29 19:29 | disposition left against medical advice (07) | LOC: DL.ED 19:00 ==

== ENCOUNTER 2021-12-02 19:20 | Emergency (ER) | payer BC ==
[2021-12-02 20:11] VITALS: PULSE 100
[2021-12-02 20:26] LABS: CORONAVIRUS COVID-19 NAA NEGATIVE (NEGATIVE)
== END 2021-12-02 20:50 | disposition home or self-care (01) ==
LOC: DL.ED 19:20
DX: J02.9 Acute pharyngitis, unspecified (principal); K21.9 Gastro-esophageal reflux disease without esophagitis; F17.210 Nicotine dependence, cigarettes, uncomplicated; Z88.5 Allergy status to narcotic agent; Z91.018 Allergy to other foods; Z79.899 Other long term (current) drug therapy; Z20.822 Contact with and (suspected) exposure to COVID-19
CPT/HCPCS: 0240U; 87081; 87430; 99283

== ENCOUNTER 2022-01-13 23:02 | Emergency (ER) | payer BC ==
[2022-01-13 23:10] VITALS: BP 110/53; PULSE 89
== END 2022-01-14 00:28 | disposition home or self-care (01) ==
LOC: DL.ED 23:02
DX: S63.502A Unspecified sprain of left wrist, initial encounter (principal); K21.9 Gastro-esophageal reflux disease without esophagitis; Z91.018 Allergy to other foods; Z88.6 Allergy status to analgesic agent; Z88.8 Allergy status to other drugs, medicaments and biological substances; Z79.899 Other long term (current) drug therapy; X50.9XXA Other and unspecified overexertion or strenuous movements or postures, initial encounter; Y99.0 Civilian activity done for income or pay
CPT/HCPCS: 73110-LT; 99282; 99283

== ENCOUNTER 2022-04-29 19:13 | Emergency (ER) | payer BC ==
[2022-04-29 19:32] VITALS: BP 125/82; PULSE 82
== END 2022-04-29 19:41 | disposition left against medical advice (07) ==
LOC: DL.ED 19:13
DX: Z53.21 Procedure and treatment not carried out due to patient leaving prior to being seen by health care provider (principal)

== ENCOUNTER 2023-01-20 21:30 | Emergency (ER) | payer BC, MEDICAID ==
[2023-01-20 22:27] VITALS: BP 118/72; PULSE 82
[2023-01-20] MEDS ORDERED: Triamcinolone Acetonide 40 MG/ML 1 ML SDV INJECT ONE (23:57)
[2023-01-20] MEDS ORDERED: Orphenadrine 60 MG/2 ML Inj IM ONE (23:57)
[2023-01-21 00:35] LABS: APPEARANCE,URINE CLEAR (CLEAR); BILIRUBIN,URINE NEGATIVE (NEGATIVE); COLOR,URINE YELLOW (YELLOW); GLUCOSE,URINE NEGATIVE (NEGATIVE); KETONES,URINE NEGATIVE (NEGATIVE); LEUKOCYTE ESTERASE,URINE NEGATIVE (NEGATIVE); NITRITE,URINE NEGATIVE (NEGATIVE); OCCULT BLOOD,URINE NEGATIVE (NEGATIVE); PROTEIN,URINE 30 (NEGATIVE); UROBILINOGEN,URINE 0.2 mg/dL (0.2-1.0)
[2023-01-21 00:45] LABS: BACTERIA,URINE FEW /HPF (0-FEW/HPF); EPITHELIAL CELLS,URINE FEW /HPF (NOT SEEN); MUCUS,URINE OCCASIONAL /LPF (NOT SEEN); RBC,URINE 0-5 /HPF (0-5); WBC,URINE 0-5 /HPF (0-5/HPF)
[2023-01-21] MEDS ORDERED: Take Home: Cyclobenzaprine 10 MG Tab, 4 Tab Pack PO ONE (01:01)
== END 2023-01-21 01:13 | disposition home or self-care (01) ==
LOC: DL.ED 21:30
DX: M62.838 Other muscle spasm (principal); J45.909 Unspecified asthma, uncomplicated; K21.9 Gastro-esophageal reflux disease without esophagitis; F17.210 Nicotine dependence, cigarettes, uncomplicated; Z86.16 Personal history of COVID-19; Z91.048 Other nonmedicinal substance allergy status; Z91.018 Allergy to other foods; Z88.5 Allergy status to narcotic agent; Z88.8 Allergy status to other drugs, medicaments and biological substances; Z79.899 Other long term (current) drug therapy
CPT/HCPCS: 81001; 96372; 99283; 99284; A9270; J2360; J3301

== ENCOUNTER 2023-04-02 20:50 | Emergency (ER) | payer MEDICAID ==
[2023-04-02] MEDS ORDERED: diphenhydrAMINE 50 MG/ML SDV IM ONE (21:24)
[2023-04-02 21:35] VITALS: BP 127/78; PULSE 99
== END 2023-04-02 21:55 | disposition home or self-care (01) ==
LOC: DL.ED 20:50
DX: F41.0 Panic disorder [episodic paroxysmal anxiety] (principal); T44.3X5A Adverse effect of other parasympatholytics [anticholinergics and antimuscarinics] and spasmolytics, initial encounter; J45.909 Unspecified asthma, uncomplicated; K21.9 Gastro-esophageal reflux disease without esophagitis; Z86.16 Personal history of COVID-19; Z88.8 Allergy status to other drugs, medicaments and biological substances; Z88.5 Allergy status to narcotic agent; Z91.048 Other nonmedicinal substance allergy status; Z91.018 Allergy to other foods; Z79.899 Other long term (current) drug therapy
CPT/HCPCS: 96372; 99283; 99284; J1200

== ENCOUNTER 2023-04-22 22:41 | Emergency (ER) | payer MEDICAID ==
[2023-04-22 22:56] VITALS: BP 118/98; PULSE 102
[2023-04-22 23:38] LABS: CORONAVIRUS COVID-19 NAA NEGATIVE (NEGATIVE); INFLUENZA A NAA NEGATIVE (NEGATIVE); INFLUENZA B NAA NEGATIVE (NEGATIVE); RESPIRATORY SYNCYTIAL VIR NAA NEGATIVE (NEGATIVE)
== END 2023-04-23 00:05 | disposition home or self-care (01) ==
LOC: DL.ED 22:41
DX: J06.9 Acute upper respiratory infection, unspecified (principal); J45.909 Unspecified asthma, uncomplicated; K21.9 Gastro-esophageal reflux disease without esophagitis; Z86.16 Personal history of COVID-19; Z79.899 Other long term (current) drug therapy; Z20.822 Contact with and (suspected) exposure to COVID-19; Z91.018 Allergy to other foods; Z88.6 Allergy status to analgesic agent; Z91.048 Other nonmedicinal substance allergy status
CPT/HCPCS: 0241U; 87081; 87430; 99282; 99283

== ENCOUNTER 2023-05-06 13:37 | Emergency (ER) | payer OTHER, MEDICAID ==
[2023-05-06 13:52] VITALS: BP 138/82; PULSE 89
[2023-05-06] MEDS ORDERED: Ketorolac 30 MG/ML SDV IM ONE (14:02)
== END 2023-05-06 15:24 | disposition home or self-care (01) ==
LOC: DL.ED 13:37
DX: S16.1XXA Strain of muscle, fascia and tendon at neck level, initial encounter (principal); S80.01XA Contusion of right knee, initial encounter; K21.9 Gastro-esophageal reflux disease without esophagitis; Z88.6 Allergy status to analgesic agent; Z88.8 Allergy status to other drugs, medicaments and biological substances; Z91.018 Allergy to other foods; Z91.048 Other nonmedicinal substance allergy status; Z86.16 Personal history of COVID-19; V49.40XA Driver injured in collision with unspecified motor vehicles in traffic accident, initial encounter; Y92.410 Unspecified street and highway as the place of occurrence of the external cause
CPT/HCPCS: 72040; 96372; 99283; 99284; J1885

== ENCOUNTER 2023-05-20 18:09 | Emergency (ER) | payer MEDICAID ==
[2023-05-20 18:23] VITALS: BP 121/104; PULSE 96
[2023-05-20] MEDS ORDERED: diphenhydrAMINE 50 MG/ML SDV IM ONE (18:32)
== END 2023-05-20 18:48 | disposition home or self-care (01) ==
LOC: DL.ED 18:09
DX: F41.9 Anxiety disorder, unspecified (principal); G47.00 Insomnia, unspecified; J45.909 Unspecified asthma, uncomplicated; K21.9 Gastro-esophageal reflux disease without esophagitis; Z86.16 Personal history of COVID-19; Z91.048 Other nonmedicinal substance allergy status; Z91.018 Allergy to other foods; Z88.8 Allergy status to other drugs, medicaments and biological substances; Z88.5 Allergy status to narcotic agent; Z79.899 Other long term (current) drug therapy
CPT/HCPCS: 96372; 99284; J1200; 99282

== ENCOUNTER 2023-06-26 21:34 | Emergency (ER) | payer MEDICAID | END 2023-06-26 22:10 | disposition left against medical advice (07) | LOC: DL.ED 21:34 | DX: Z53.21 Procedure and treatment not carried out due to patient leaving prior to being seen by health care provider (principal) ==

== ENCOUNTER 2023-08-25 10:08 | Emergency (ER) | payer SELFPAY ==
[2023-08-25 10:35] VITALS: BP 138/80; PULSE 84
== END 2023-08-25 10:50 | disposition home or self-care (01) ==
LOC: DL.ED 10:08
DX: K52.9 Noninfective gastroenteritis and colitis, unspecified (principal); K21.9 Gastro-esophageal reflux disease without esophagitis; Z79.899 Other long term (current) drug therapy; Z86.16 Personal history of COVID-19; Z91.018 Allergy to other foods; Z91.048 Other nonmedicinal substance allergy status; Z88.6 Allergy status to analgesic agent; Z88.8 Allergy status to other drugs, medicaments and biological substances
CPT/HCPCS: 99283

== ENCOUNTER 2023-09-16 22:45 | Emergency (ER) | payer OTHER ==
[2023-09-16 23:04] VITALS: BP 144/98; PULSE 106
== END 2023-09-16 23:47 | disposition home or self-care (01) ==
LOC: DL.ED 22:45
DX: S63.501A Unspecified sprain of right wrist, initial encounter (principal); J45.909 Unspecified asthma, uncomplicated; K21.9 Gastro-esophageal reflux disease without esophagitis; Z91.018 Allergy to other foods; Z91.048 Other nonmedicinal substance allergy status; Z88.8 Allergy status to other drugs, medicaments and biological substances; Z79.899 Other long term (current) drug therapy; Z86.16 Personal history of COVID-19
CPT/HCPCS: 73100-RT; 99283

== ENCOUNTER 2023-11-05 20:49 | Emergency (ER) | payer MEDICAID, OTHER ==
[2023-11-05] MEDS: Sodium Chloride 0.9% 1,000 ML IV ONE (22:02)
[2023-11-05 22:05] LABS: BASOPHILS PERCENT AUTO 0.4 % (0.0-1.0); EOSINOPHILS PERCENT AUTO 4.6 % (1.0-3.0); HEMATOCRIT 41.2 % (37.0-47.0); HEMOGLOBIN 13.3 g/dL (12.0-16.0); LYMPHOCYTES PERCENT AUTO 25.8 % (20.5-50.1); MEAN CORPUSCULAR HGB CONC 32.3 g/dL (33.0-35.0); MEAN CORPUSCULAR VOLUME 80.6 fL (80-100); MONOCYTES PERCENT AUTO 5.1 % (2-8); NEUTROPHILS PERCENT AUTO 64.1 % (42.2-75.2); PLATELET COUNT,PLT 323 10^3/uL (150-450); RED BLOOD CELL COUNT 5.11 10^6/uL (4.2-5.4); WHITE BLOOD CELL COUNT,WBC 11.5 10^3/uL (5.0-10.0)
[2023-11-05 22:06] LABS: APPEARANCE,URINE SLIGHTLY CLOUDY (CLEAR); BILIRUBIN,URINE NEGATIVE (NEGATIVE); COLOR,URINE YELLOW (YELLOW); GLUCOSE,URINE NEGATIVE (NEGATIVE); KETONES,URINE NEGATIVE (NEGATIVE); LEUKOCYTE ESTERASE,URINE SMALL (NEGATIVE); NITRITE,URINE NEGATIVE (NEGATIVE); OCCULT BLOOD,URINE NEGATIVE (NEGATIVE); PH,URINE 6.5 (5.0-9.0); PROTEIN,URINE NEGATIVE (NEGATIVE)
[2023-11-05 22:10] VITALS: BP 108/83; PULSE 110
[2023-11-05 22:22] LABS: AMORPHOUS SEDIMENT,URINE MODERATE /HPF (NOT SEEN); BACTERIA,URINE MODERATE /HPF (0-FEW/HPF); EPITHELIAL CELLS,URINE MODERATE /HPF (NOT SEEN); MUCUS,URINE FEW /LPF (NOT SEEN); RBC,URINE 0-5 /HPF (0-5)
[2023-11-05] MEDS: cefTRIAXone 1 GM Vial IVPUSH ONE (22:23)
[2023-11-05 22:28] LABS: A/G RATIO 0.9; ALBUMIN 3.6 g/dL (3.4-5.0); BILIRUBIN TOTAL 0.2 mg/dL (0.2-1.0); BUN/CREATININE RATIO 10.7 (No establ ref range); C-REACTIVE PROTEIN 0.96 ng/dL (<=0.50); CALCIUM 9.8 mg/dL (8.5-10.1); CREATININE 0.84 mg/dL (0.55-1.02); EST CRCL DRUG DOSING (CG) 93.73 mL/min; LACTIC ACID 1.3 mmol/L (0.4-2.0); MAGNESIUM 2.3 mg/dL (1.8-2.4); PROTEIN TOTAL,TP 7.6 g/dL (6.4-8.2)
[2023-11-05] MEDS: Iopamidol 612 MG/ML 100 ML Bottle IVPUSH ONE (22:54)
[2023-11-05] MEDS: Take Home: Ondansetron 4 MG Tab.DIS, 5 Tab Pack PO ONE (23:28)
== END 2023-11-05 23:45 | disposition home or self-care (01) ==
LOC: DL.ED 20:49
DX: N39.0 Urinary tract infection, site not specified (principal); E86.9 Volume depletion, unspecified; K21.9 Gastro-esophageal reflux disease without esophagitis; F17.210 Nicotine dependence, cigarettes, uncomplicated; Z86.16 Personal history of COVID-19; Z79.899 Other long term (current) drug therapy; Z91.018 Allergy to other foods; Z88.6 Allergy status to analgesic agent; Z88.8 Allergy status to other drugs, medicaments and biological substances; Z91.048 Other nonmedicinal substance allergy status
CPT/HCPCS: 36415; 74177; 80053; 81001; 81025; 83605; 83690; 83735; 84484; 85025; 86140; 87086; 93005; 96361; 96374; 99284; J0696; J7030; Q0162; Q9967

== ENCOUNTER 2024-01-12 21:37 | Emergency (ER) | payer MEDICAID ==
[2024-01-12 22:10] LABS: BASOPHILS PERCENT AUTO 0.6 % (0.0-1.0); EOSINOPHILS PERCENT AUTO 5.5 % (1.0-3.0); HEMATOCRIT 41.1 % (37.0-47.0); HEMOGLOBIN 13.3 g/dL (12.0-16.0); MEAN CORPUSCULAR HEMOGLOBIN 25.9 pg (27.0-34.0); MEAN CORPUSCULAR HGB CONC 32.4 g/dL (33.0-35.0); NEUTROPHILS PERCENT AUTO 58.9 % (42.2-75.2); PLATELET COUNT,PLT 310 10^3/uL (150-450); RED BLOOD CELL COUNT 5.14 10^6/uL (4.2-5.4)
[2024-01-12] MEDS: Sodium Chloride 0.9% 1,000 ML IV ONE ×2 (22:23→23:43)
[2024-01-12] MEDS: Acetaminophen 325 MG Tab PO ONE (22:24)
[2024-01-12 22:33] LABS: A/G RATIO 0.9; ALBUMIN 3.8 g/dL (3.4-5.0); ANION GAP 11.3 mEq/L (7-13); BILIRUBIN TOTAL 0.2 mg/dL (0.2-1.0); BUN/CREATININE RATIO 16.5 (No establ ref range); CALCIUM 9.5 mg/dL (8.5-10.1); CREATININE 0.85 mg/dL (0.55-1.02); EST CRCL DRUG DOSING (CG) 90.27 mL/min; POTASSIUM,K 4.3 mmol/L (3.5-5.1); PROTEIN TOTAL,TP 7.9 g/dL (6.4-8.2)
[2024-01-12 23:23] VITALS: BP 122/74; PULSE 787
[2024-01-12 23:23] LABS: APPEARANCE,URINE SLIGHTLY CLOUDY (CLEAR); BILIRUBIN,URINE NEGATIVE (NEGATIVE); COLOR,URINE YELLOW (YELLOW); GLUCOSE,URINE NEGATIVE (NEGATIVE); KETONES,URINE NEGATIVE (NEGATIVE); LEUKOCYTE ESTERASE,URINE TRACE (NEGATIVE); NITRITE,URINE NEGATIVE (NEGATIVE); OCCULT BLOOD,URINE MODERATE (NEGATIVE); PROTEIN,URINE NEGATIVE (NEGATIVE); UROBILINOGEN,URINE 0.2 mg/dL (0.2-1.0)
[2024-01-12 23:42] LABS: BACTERIA,URINE MODERATE /HPF (0-FEW/HPF); EPITHELIAL CELLS,URINE FEW /HPF (NOT SEEN); WBC,URINE 0-5 /HPF (0-5/HPF)
[2024-01-12] MEDS: cefTRIAXone 1 GM Vial IVPUSH ONE (23:43)
[2024-01-12] MEDS: Ketorolac 30 MG/ML SDV IVPUSH ONE (23:43)
== END 2024-01-13 00:34 | disposition home or self-care (01) ==
LOC: DL.ED 21:37
DX: R51.9 Headache, unspecified (principal); E86.0 Dehydration; N39.0 Urinary tract infection, site not specified; F17.200 Nicotine dependence, unspecified, uncomplicated; K21.9 Gastro-esophageal reflux disease without esophagitis; Z86.16 Personal history of COVID-19; Z79.899 Other long term (current) drug therapy; Z88.8 Allergy status to other drugs, medicaments and biological substances; Z91.018 Allergy to other foods; Z91.048 Other nonmedicinal substance allergy status
CPT/HCPCS: 36415; 70450; 80053; 81001; 81025; 82947; 83735; 84484; 85025; 87086; 93005; 96361; 96374; 96375; 99284; A9270; J0696; J1885; J7030

== ENCOUNTER 2024-01-30 11:52 | Emergency (ER) | payer MEDICAID ==
[2024-01-30] MEDS ORDERED: Sodium Chloride 0.9% 10 ML Syringe FLUSH PRN (12:42)
[2024-01-30 12:50] LABS: BASOPHILS PERCENT AUTO 0.7 % (0.0-1.0); EOSINOPHILS PERCENT AUTO 6.8 % (1.0-3.0); HEMOGLOBIN 14.8 g/dL (12.0-16.0); LYMPHOCYTES PERCENT AUTO 32.6 % (20.5-50.1); MEAN CORPUSCULAR HEMOGLOBIN 25.9 pg (27.0-34.0); MEAN CORPUSCULAR HGB CONC 32.9 g/dL (33.0-35.0); MEAN CORPUSCULAR VOLUME 78.7 fL (80-100); MONOCYTES PERCENT AUTO 6.2 % (2-8); NEUTROPHILS PERCENT AUTO 53.7 % (42.2-75.2); PLATELET COUNT,PLT 314 10^3/uL (150-450); RED BLOOD CELL COUNT 5.72 10^6/uL (4.2-5.4); WHITE BLOOD CELL COUNT,WBC 8.4 10^3/uL (5.0-10.0)
[2024-01-30] MEDS: Ondansetron 4 MG/2 ML SDV IVPUSH ONE (12:50)
[2024-01-30] MEDS: Sodium Chloride 0.9% 1,000 ML IV ONE (12:50)
[2024-01-30 13:00] LABS: APPEARANCE,URINE CLOUDY (CLEAR); BILIRUBIN,URINE SMALL (NEGATIVE); COLOR,URINE DARK YELLOW (YELLOW); GLUCOSE,URINE NEGATIVE (NEGATIVE); KETONES,URINE NEGATIVE (NEGATIVE); LEUKOCYTE ESTERASE,URINE NEGATIVE (NEGATIVE); NITRITE,URINE NEGATIVE (NEGATIVE); OCCULT BLOOD,URINE MODERATE (NEGATIVE); PROTEIN,URINE TRACE (NEGATIVE)
[2024-01-30 13:13] LABS: AMORPHOUS SEDIMENT,URINE MANY /HPF (NOT SEEN); BACTERIA,URINE MODERATE /HPF (0-FEW/HPF); EPITHELIAL CELLS,URINE FEW /HPF (NOT SEEN); MUCUS,URINE FEW /LPF (NOT SEEN); RBC,URINE 0-5 /HPF (0-5); WBC,URINE 0-5 /HPF (0-5/HPF)
[2024-01-30] MEDS: GI Cocktail Oral Solution 30 ML PO ONE (14:47)
[2024-01-30 15:13] LABS: A/G RATIO 0.9; ALBUMIN 3.9 g/dL (3.4-5.0); ANION GAP 13.8 mEq/L (7-13); BILIRUBIN TOTAL 0.3 mg/dL (0.2-1.0); BUN/CREATININE RATIO 9.9 (No establ ref range); CALCIUM 9.5 mg/dL (8.5-10.1); CREATININE 0.91 mg/dL (0.55-1.02); EST CRCL DRUG DOSING (CG) 86.52 mL/min; MAGNESIUM 2.2 mg/dL (1.8-2.4); POTASSIUM,K 3.8 mmol/L (3.5-5.1); PROTEIN TOTAL,TP 8.4 g/dL (6.4-8.2)
[2024-01-30 15:15] LABS: LACTIC ACID 1.7 mmol/L (0.4-2.0)
[2024-01-30] MEDS: Iopamidol 612 MG/ML 100 ML Bottle IVPUSH ONE (15:37)
[2024-01-30 16:38] VITALS: BP 127/86; PULSE 93
== END 2024-01-30 16:45 | disposition home or self-care (01) ==
LOC: DL.ED 11:52
DX: R10.31 Right lower quadrant pain (principal); J45.909 Unspecified asthma, uncomplicated; K21.9 Gastro-esophageal reflux disease without esophagitis; F17.210 Nicotine dependence, cigarettes, uncomplicated; Z79.899 Other long term (current) drug therapy; Z91.018 Allergy to other foods; Z88.8 Allergy status to other drugs, medicaments and biological substances; Z88.6 Allergy status to analgesic agent; Z88.9 Allergy status to unspecified drugs, medicaments and biological substances; Z91.011 Allergy to milk products
CPT/HCPCS: 36415; 74177; 80053; 81001; 81025; 82150; 83605; 83690; 83735; 85025; 86140; 96361; 96374; 99283; 99284-25; A9270-GY; J2405; J7030; Q9967

== ENCOUNTER 2024-02-16 19:09 | Emergency (ER) | payer MEDICAID ==
[2024-02-16 18:41] VITALS: BP 127/80; PULSE 78
[2024-02-16] MEDS: Albuterol/Ipratropium 3.0-0.5 MG/3 ML Neb Soln NEB ONE (19:28)
== END 2024-02-16 21:21 | disposition home or self-care (01) ==
LOC: DL.ED 19:09
DX: J06.9 Acute upper respiratory infection, unspecified (principal); B97.89 Other viral agents as the cause of diseases classified elsewhere; F17.210 Nicotine dependence, cigarettes, uncomplicated; J45.909 Unspecified asthma, uncomplicated; K21.9 Gastro-esophageal reflux disease without esophagitis; Z79.899 Other long term (current) drug therapy; Z91.018 Allergy to other foods; Z91.048 Other nonmedicinal substance allergy status; Z88.6 Allergy status to analgesic agent; Z88.8 Allergy status to other drugs, medicaments and biological substances
CPT/HCPCS: 71046; 87081; 87430; 87804; 99283; 99285; J7620-GY; U0002

== ENCOUNTER 2024-04-26 12:57 | Emergency (ER) | payer MEDICAID ==
[2024-04-26 13:48] LABS: BASOPHILS PERCENT AUTO 0.5 % (0.0-1.0); EOSINOPHILS PERCENT AUTO 4.2 % (1.0-3.0); HEMOGLOBIN 14.9 g/dL (12.0-16.0); LYMPHOCYTES PERCENT AUTO 27.8 % (20.5-50.1); MEAN CORPUSCULAR HEMOGLOBIN 26.2 pg (27.0-34.0); MEAN CORPUSCULAR HGB CONC 32.4 g/dL (33.0-35.0); MEAN CORPUSCULAR VOLUME 80.8 fL (80-100); NEUTROPHILS PERCENT AUTO 61.5 % (42.2-75.2); PLATELET COUNT,PLT 329 10^3/uL (150-450); RED BLOOD CELL COUNT 5.69 10^6/uL (4.2-5.4); WHITE BLOOD CELL COUNT,WBC 11.3 10^3/uL (5.0-10.0)
[2024-04-26 13:51] LABS: APPEARANCE,URINE CLEAR (CLEAR); BILIRUBIN,URINE NEGATIVE (NEGATIVE); COLOR,URINE YELLOW (YELLOW); GLUCOSE,URINE NEGATIVE (NEGATIVE); KETONES,URINE NEGATIVE (NEGATIVE); LEUKOCYTE ESTERASE,URINE TRACE (NEGATIVE); NITRITE,URINE NEGATIVE (NEGATIVE); OCCULT BLOOD,URINE MODERATE (NEGATIVE); PH,URINE 5.5 (5.0-9.0); PROTEIN,URINE 30 (NEGATIVE); UROBILINOGEN,URINE 0.2 mg/dL (0.2-1.0)
[2024-04-26 14:02] LABS: BACTERIA,URINE MODERATE /HPF (0-FEW/HPF); EPITHELIAL CELLS,URINE MODERATE /HPF (NOT SEEN); MUCUS,URINE FEW /LPF (NOT SEEN)
[2024-04-26 14:10] LABS: A/G RATIO 0.9; ALBUMIN 3.8 g/dL (3.4-5.0); ANION GAP 13.1 mEq/L (7-13); BILIRUBIN TOTAL 0.2 mg/dL (0.2-1.0); BUN/CREATININE RATIO 13.3 (No establ ref range); CALCIUM 9.6 mg/dL (8.5-10.1); CREATININE 1.05 mg/dL (0.55-1.02); EST CRCL DRUG DOSING (CG) 71.34 mL/min; POTASSIUM,K 4.1 mmol/L (3.5-5.1); PROTEIN TOTAL,TP 8.2 g/dL (6.4-8.2)
[2024-04-26 14:22] LABS: PTT,PARTIAL THROMBOPLSTIN TIME 26.3 SEC (22.0-34.0)
[2024-04-26 14:39] LABS: PROTHROMBIN TIME 10.4 SEC (9.0-12.0)
[2024-04-26] MEDS: Sulfamethoxazole/Trimethoprim 800-160 MG Tab PO ONE (15:04)
[2024-04-26] MEDS: Ondansetron 4 MG Tab.DIS PO ONE (15:04)
[2024-04-26 15:40] VITALS: BP 139/77; PULSE 73
== END 2024-04-26 15:19 | disposition home or self-care (01) ==
LOC: DL.ED 12:57
DX: N30.01 Acute cystitis with hematuria (principal); R11.2 Nausea with vomiting, unspecified; J45.909 Unspecified asthma, uncomplicated; Z88.6 Allergy status to analgesic agent; Z88.8 Allergy status to other drugs, medicaments and biological substances; Z91.018 Allergy to other foods; Z91.048 Other nonmedicinal substance allergy status; Z79.899 Other long term (current) drug therapy
CPT/HCPCS: 36415; 71045; 74019; 80053; 81001; 81025; 85025; 85610; 85730; 87086; 99284; A9270

== ENCOUNTER 2024-05-06 05:51 | Day surgery (SDC) | payer MEDICAID ==
[2024-05-06] MEDS ORDERED: Midazolam 1 MG/ML 2 ML SDV IV ONE (06:15)
[2024-05-06] MEDS ORDERED: Midazolam 1 MG/ML 2 ML SDV ONE (06:15)
[2024-05-06] MEDS ORDERED: fentaNYL 100 MCG/2 ML SDV ONE (06:15)
[2024-05-06] MEDS ORDERED: fentaNYL 100 MCG/2 ML SDV IV ONE (06:15)
[2024-05-06] MEDS: Dextrose 5%-0.45% NaCl 1,000 ML IV SCH (06:17)
[2024-05-06] MEDS: fentaNYL 100 MCG/2 ML SDV IV ONE ×2 (07:08→07:09)
[2024-05-06] MEDS: Midazolam 1 MG/ML 2 ML SDV IV ONE ×2 (07:09→07:10)
[2024-05-06 14:56] VITALS: BP 127/71; PULSE 81
== END 2024-05-06 09:06 | disposition home or self-care (01) ==
LOC: DL.ENDO 05:51
PROVIDERS: ATTEND Internal Medicine Gastroenterology
DX: D50.9 Iron deficiency anemia, unspecified (principal)
CPT/HCPCS: 81025; J2250; J3010; J7799

== ENCOUNTER 2024-08-01 23:18 | Emergency (ER) | payer MEDICAID ==
[2024-08-01] MEDS: Acetaminophen 325 MG Tab PO ONE (23:34)
[2024-08-01 23:52] LABS: APPEARANCE,URINE SLIGHTLY CLOUDY (CLEAR); BILIRUBIN,URINE SMALL (NEGATIVE); COLOR,URINE DARK YELLOW (YELLOW); GLUCOSE,URINE NEGATIVE (NEGATIVE); KETONES,URINE NEGATIVE (NEGATIVE); LEUKOCYTE ESTERASE,URINE NEGATIVE (NEGATIVE); NITRITE,URINE NEGATIVE (NEGATIVE); OCCULT BLOOD,URINE LARGE (NEGATIVE); PROTEIN,URINE 100 (NEGATIVE)
[2024-08-02 00:09] LABS: AMPHETAMINES,URINE NEGATIVE (NEGATIVE); BARBITURATES,URINE NEGATIVE (NEGATIVE); BENZODIAZEPINE,URINE NEGATIVE (NEGATIVE); MDMA (ECSTASY), URINE NEGATIVE (NEGATIVE); METHADONE,URINE NEGATIVE (NEGATIVE); METHAMPHETAMINES,URINE NEGATIVE (NEGATIVE); OPIATES,URINE NEGATIVE (NEGATIVE); OXYCODONE,URINE NEGATIVE (NEGATIVE); PHENCYCLIDINE,URINE NEGATIVE (NEGATIVE); TCA,URINE NEGATIVE (NEGATIVE)
[2024-08-02 00:18] LABS: RBC,URINE >100 /HPF (0-5)
[2024-08-02 00:19] LABS: BACTERIA,URINE FEW /HPF (0-FEW/HPF); EPITHELIAL CELLS,URINE FEW /HPF (NOT SEEN); MUCUS,URINE FEW /LPF (NOT SEEN); WBC,URINE 0-5 /HPF (0-5/HPF)
[2024-08-02 00:38] VITALS: BP 130/74; PULSE 92
== END 2024-08-02 00:38 | disposition home or self-care (01) ==
LOC: DL.ED 23:18
DX: J06.9 Acute upper respiratory infection, unspecified (principal); E86.9 Volume depletion, unspecified; F17.210 Nicotine dependence, cigarettes, uncomplicated; Z91.018 Allergy to other foods; Z88.8 Allergy status to other drugs, medicaments and biological substances; Z79.899 Other long term (current) drug therapy
CPT/HCPCS: 80305; 81001; 81025; 87081; 87428; 87430; 99283; A9270

== ENCOUNTER 2024-08-16 23:36 | Emergency (ER) | payer MEDICAID ==
[2024-08-17 00:02] VITALS: BP 125/89; PULSE 103
== END 2024-08-17 00:30 | disposition home or self-care (01) ==
LOC: DL.ED 23:36
DX: S60.221A Contusion of right hand, initial encounter (principal); Z88.8 Allergy status to other drugs, medicaments and biological substances; Z91.018 Allergy to other foods; Z91.048 Other nonmedicinal substance allergy status; Z79.899 Other long term (current) drug therapy; Z79.1 Long term (current) use of non-steroidal anti-inflammatories (NSAID); W20.8XXA Other cause of strike by thrown, projected or falling object, initial encounter
CPT/HCPCS: 73110-RT; 73130-RT; 99282; 99283

== ENCOUNTER 2024-09-20 19:04 | Emergency (ER) | payer MEDICAID ==
[2024-09-20] MEDS: Famotidine 20 MG Tab PO ONE (19:44)
[2024-09-20] MEDS: Dexamethasone 4 MG/ML SDV PO ONE (19:45)
[2024-09-20 20:50] VITALS: BP 125/82; PULSE 76
== END 2024-09-20 20:48 | disposition home or self-care (01) ==
LOC: DL.ED 19:04
DX: T78.1XXA Other adverse food reactions, not elsewhere classified, initial encounter (principal); F17.210 Nicotine dependence, cigarettes, uncomplicated; Z91.018 Allergy to other foods; Z88.5 Allergy status to narcotic agent; Z88.8 Allergy status to other drugs, medicaments and biological substances; Z79.899 Other long term (current) drug therapy
CPT/HCPCS: 99282; 99283; A9270; J1100

== ENCOUNTER 2024-09-26 23:04 | Emergency (ER) | payer MEDICAID ==
[2024-09-26 23:29] LABS: BASOPHILS PERCENT AUTO 0.5 % (0.0-1.0); EOSINOPHILS PERCENT AUTO 4.2 % (1.0-3.0); HEMATOCRIT 42.6 % (37.0-47.0); HEMOGLOBIN 14.4 g/dL (12.0-16.0); MEAN CORPUSCULAR HEMOGLOBIN 27.2 pg (27.0-34.0); MEAN CORPUSCULAR HGB CONC 33.8 g/dL (33.0-35.0); MEAN CORPUSCULAR VOLUME 80.4 fL (80-100); MONOCYTES PERCENT AUTO 5.4 % (2-8); NEUTROPHILS PERCENT AUTO 53.9 % (42.2-75.2); PLATELET COUNT,PLT 274 10^3/uL (150-450); WHITE BLOOD CELL COUNT,WBC 10.8 10^3/uL (5.0-10.0)
[2024-09-26] MEDS: Sodium Chloride 0.9% 1,000 ML IV ONE (23:31)
[2024-09-26] MEDS: Ondansetron 4 MG/2 ML SDV IVPUSH ONE (23:32)
[2024-09-26 23:45] LABS: A/G RATIO 1.2; ANION GAP 12.9 mEq/L (7-13); BILIRUBIN TOTAL 0.3 mg/dL (0.2-1.0); BUN/CREATININE RATIO 9.1 (No establ ref range); CALCIUM 9.5 mg/dL (8.5-10.1); CREATININE 0.99 mg/dL (0.55-1.02); EST CRCL DRUG DOSING (CG) 78.85 mL/min; POTASSIUM,K 3.9 mmol/L (3.5-5.1); PROTEIN TOTAL,TP 7.4 g/dL (6.4-8.2)
[2024-09-26 23:52] LABS: APPEARANCE,URINE SLIGHTLY CLOUDY (CLEAR); BILIRUBIN,URINE SMALL (NEGATIVE); COLOR,URINE YELLOW (YELLOW); GLUCOSE,URINE NEGATIVE (NEGATIVE); KETONES,URINE NEGATIVE (NEGATIVE); LEUKOCYTE ESTERASE,URINE NEGATIVE (NEGATIVE); NITRITE,URINE NEGATIVE (NEGATIVE); OCCULT BLOOD,URINE LARGE (NEGATIVE); PROTEIN,URINE 100 (NEGATIVE); UROBILINOGEN,URINE 0.2 mg/dL (0.2-1.0)
[2024-09-27 00:06] LABS: BACTERIA,URINE MODERATE /HPF (0-FEW/HPF); EPITHELIAL CELLS,URINE MANY /HPF (NOT SEEN)
[2024-09-27 00:07] LABS: MUCUS,URINE MANY /LPF (NOT SEEN)
[2024-09-27] MEDS: Sodium Chloride 0.9% 1,000 ML IV ONE (00:28)
[2024-09-27] MEDS: Iopamidol 612 MG/ML 100 ML Bottle IVPUSH ONE (01:04)
[2024-09-27] MEDS: Morphine 4 MG/ML Syringe IVPUSH ONE (01:37)
[2024-09-27 02:49] LABS: APPEARANCE,URINE CLEAR (CLEAR); BILIRUBIN,URINE NEGATIVE (NEGATIVE); COLOR,URINE YELLOW (YELLOW); GLUCOSE,URINE NEGATIVE (NEGATIVE); KETONES,URINE NEGATIVE (NEGATIVE); LEUKOCYTE ESTERASE,URINE NEGATIVE (NEGATIVE); NITRITE,URINE NEGATIVE (NEGATIVE); OCCULT BLOOD,URINE NEGATIVE (NEGATIVE); PROTEIN,URINE NEGATIVE (NEGATIVE); UROBILINOGEN,URINE 0.2 mg/dL (0.2-1.0)
[2024-09-27 02:54] LABS: AMPHETAMINES,URINE NEGATIVE (NEGATIVE); BARBITURATES,URINE NEGATIVE (NEGATIVE); BENZODIAZEPINE,URINE NEGATIVE (NEGATIVE); MDMA (ECSTASY), URINE NEGATIVE (NEGATIVE); METHADONE,URINE NEGATIVE (NEGATIVE); METHAMPHETAMINES,URINE NEGATIVE (NEGATIVE); OPIATES,URINE POSITIVE (NEGATIVE); OXYCODONE,URINE NEGATIVE (NEGATIVE); PHENCYCLIDINE,URINE NEGATIVE (NEGATIVE); TCA,URINE NEGATIVE (NEGATIVE)
[2024-09-27 06:39] LABS: HEMATOCRIT 41.2 % (37.0-47.0); HEMOGLOBIN 13.1 g/dL (12.0-16.0); MEAN CORPUSCULAR HGB CONC 31.8 g/dL (33.0-35.0); MEAN CORPUSCULAR VOLUME 81.7 fL (80-100); RED BLOOD CELL COUNT 5.04 10^6/uL (4.2-5.4); WHITE BLOOD CELL COUNT,WBC 8.3 10^3/uL (5.0-10.0)
[2024-09-27 07:15] VITALS: PULSE 69
[2024-09-27 08:55] VITALS: BP 111/82
== END 2024-09-27 10:00 | disposition still patient (30) ==
LOC: DL.ED 23:04
DX: R10.31 Right lower quadrant pain (principal); Z88.8 Allergy status to other drugs, medicaments and biological substances; Z91.018 Allergy to other foods; Z79.899 Other long term (current) drug therapy
CPT/HCPCS: 36415; 74177; 76705; 76857; 80053; 80305; 81001; 81003; 81025; 83690; 85025; 85027; 96361; 96374; 96375; 99283; 99284; J2270; J2405; J7030; Q9967

== ENCOUNTER 2024-09-27 16:35 | Emergency (ER) | payer MEDICAID ==
[2024-09-27] MEDS: Ketorolac 30 MG/ML SDV IVPUSH ONE (18:29)
[2024-09-27 18:36] LABS: HEMATOCRIT 46.3 % (37.0-47.0); HEMOGLOBIN 15.5 g/dL (12.0-16.0); MEAN CORPUSCULAR HEMOGLOBIN 27.2 pg (27.0-34.0); MEAN CORPUSCULAR HGB CONC 33.5 g/dL (33.0-35.0); MEAN CORPUSCULAR VOLUME 81.4 fL (80-100); PLATELET COUNT,PLT 314 10^3/uL (150-450); RED BLOOD CELL COUNT 5.69 10^6/uL (4.2-5.4); WHITE BLOOD CELL COUNT,WBC 9.2 10^3/uL (5.0-10.0)
[2024-09-27 18:38] LABS: BASOPHILS PERCENT AUTO 0.5 % (0.0-1.0); LYMPHOCYTES PERCENT AUTO 30.3 % (20.5-50.1); NEUTROPHILS PERCENT AUTO 57.2 % (42.2-75.2)
[2024-09-27 18:40] LABS: ALBUMIN 3.9 g/dL (3.4-5.0); BILIRUBIN TOTAL 0.4 mg/dL (0.2-1.0); BUN/CREATININE RATIO 9.3 (No establ ref range); C-REACTIVE PROTEIN 0.88 ng/dL (<=0.50); CALCIUM 9.6 mg/dL (8.5-10.1); CREATININE 0.97 mg/dL (0.55-1.02); EST CRCL DRUG DOSING (CG) 80.47 mL/min; PROTEIN TOTAL,TP 7.8 g/dL (6.4-8.2)
[2024-09-27 18:59] LABS: EOSINOPHILS PERCENT MAN 3 % (1-3); LYMPHOCYTES PERCENT MAN 32 % (20-50); MONOCYTES PERCENT MAN 5 % (2-8); SEG NEUTROPHILS PERCENT MAN 60 % (42-75)
[2024-09-27] MEDS: Iopamidol 612 MG/ML 100 ML Bottle IVPUSH ONE (20:10)
[2024-09-27 21:55] VITALS: BP 119/79; PULSE 71
== END 2024-09-27 22:19 | disposition still patient (30) ==
LOC: DL.ED 16:35
DX: K37 Unspecified appendicitis (principal); Z91.018 Allergy to other foods; Z88.8 Allergy status to other drugs, medicaments and biological substances; Z79.899 Other long term (current) drug therapy
CPT/HCPCS: 36415; 74177; 80053; 85025; 86140; 96374; 99284; 99285; J1885; Q9967

== ENCOUNTER 2025-03-09 21:44 | Emergency (ER) | payer SELFPAY ==
[2025-03-09 22:56] VITALS: BP 125/76; PULSE 75
== END 2025-03-09 22:45 | disposition home or self-care (01) ==
LOC: DL.ED 21:44
DX: M54.16 Radiculopathy, lumbar region (principal); Z79.899 Other long term (current) drug therapy; Z91.048 Other nonmedicinal substance allergy status; Z91.018 Allergy to other foods
CPT/HCPCS: 99283

== ENCOUNTER 2025-04-04 22:02 | Emergency (ER) | payer SELFPAY ==
[2025-04-04 22:21] VITALS: BP 132/102; PULSE 91
[2025-04-04] MEDS ORDERED: Phenazopyridine 95 MG Tab PO ONE (23:02)
== END 2025-04-04 23:05 | disposition home or self-care (01) ==
LOC: DL.ED 22:02
DX: K21.00 Gastro-esophageal reflux disease with esophagitis, without bleeding (principal); Z88.6 Allergy status to analgesic agent; Z88.8 Allergy status to other drugs, medicaments and biological substances; Z91.018 Allergy to other foods; Z91.048 Other nonmedicinal substance allergy status; Z79.899 Other long term (current) drug therapy
CPT/HCPCS: 99283